=== PATIENT | female | born 1940 | race Caucasian/White ===

== ENCOUNTER 2023-01-10 14:25 | Emergency (ER) | payer MEDICARE, OTHER, SELFPAY ==
--- NOTE | ~2023-01-10 | XR_ITS ---
EXAMINATION: XR chest 1V, XR shoulder RT min 2V CLINICAL INFORMATION: Reason for Exam fall chest trauma COMPARISON: None. TECHNIQUE: 5 view series right shoulder; portable AP chest FINDINGS: Chest: Moderate aortic calcific atherosclerosis is noted. The cardiac silhouette is normal in size. No effusions or pneumothoraces. Mild biapical pleural parenchymal scarring of the lungs is visualized. A normal pattern of pulmonary vasculature is noted. No focal pulmonary consolidation. Right shoulder: Chronic appearing dystrophic calcifications are noted in the expected region of the distal supraspinatus. Glenoid humeral joint spacing and alignment are normal in appearance. Visualized right ribs and lung are normal in appearance. Mild osteophytosis of the acromioclavicular joint. XR/XR chest 1V IMPRESSION: CHEST: 1. No acute cardiopulmonary abnormalities. 2. Moderate aortic calcific atherosclerosis. RIGHT SHOULDER: 1. No acute abnormalities identified. 2. Chronic appearing dystrophic calcifications in the expected region of the distal supraspinatus tendon. Findings may correlate with chronic calcific tendinosis and chronic rotator cuff degeneration.
--- NOTE | ~2023-01-10 | US_ITS ---
EXAMINATION: US VENOUS ULTRASOUND WITH DOPPLER LOWER EXTREMITY, LEFT CLINICAL INFORMATION: Left lower extremity swelling. COMPARISON: None available. TECHNIQUE: Ultrasound of the deep veins is performed from the hip to the calf with compression sonography and color and pulse Doppler assessment. Spectral analysis with color-flow imaging is performed. FINDINGS: There is normal venous compression and respiratory variation and augmented flow. The visualized common femoral vein, superficial femoral vein, profunda femoral vein, popliteal vein, and the trifurcation region shows no evidence of deep venous thrombosis. There is no significant popliteal fossa cyst. No evidence of Lindsey's cyst. US/US venous duplex LE LT IMPRESSION: No DVT demonstrated in the left lower extremity.
--- NOTE | ~2023-01-10 | XR_ITS ---
EXAMINATION: XR chest 1V, XR shoulder RT min 2V CLINICAL INFORMATION: Reason for Exam fall chest trauma COMPARISON: None. TECHNIQUE: 5 view series right shoulder; portable AP chest FINDINGS: Chest: Moderate aortic calcific atherosclerosis is noted. The cardiac silhouette is normal in size. No effusions or pneumothoraces. Mild biapical pleural parenchymal scarring of the lungs is visualized. A normal pattern of pulmonary vasculature is noted. No focal pulmonary consolidation. Right shoulder: Chronic appearing dystrophic calcifications are noted in the expected region of the distal supraspinatus. Glenoid humeral joint spacing and alignment are normal in appearance. Visualized right ribs and lung are normal in appearance. Mild osteophytosis of the acromioclavicular joint. XR/XR shoulder RT min 2V IMPRESSION: CHEST: 1. No acute cardiopulmonary abnormalities. 2. Moderate aortic calcific atherosclerosis. RIGHT SHOULDER: 1. No acute abnormalities identified. 2. Chronic appearing dystrophic calcifications in the expected region of the distal supraspinatus tendon. Findings may correlate with chronic calcific tendinosis and chronic rotator cuff degeneration.
[2023-01-10 14:38] VITALS: BP 109/70; PULSE 105; RESP 18; TEMP 36.8; O2SAT 98; BMI 30.1
--- NOTE | 2023-01-10 14:39 | ECG_ITS ---
Test Reason : fall Blood Pressure : / mmHG Vent. Rate : 102 BPM Atrial Rate : 000 BPM P-R Int : 000 ms QRS Dur : 076 ms QT Int : 338 ms P-R-T Axes : 000 003 -21 degrees QTc Int : 440 ms Atrial fibrillation with rapid ventricular response Anteroseptal infarct , age undetermined Abnormal ECG No previous ECGs available Referred By: Gemma Powell Electronically Signed By:RIKKI BACH MD
--- NOTE | 2023-01-10 14:40 | ED_ITS ---
HPI - General Adult General Chief complaint: Fall <SIMON Ramirez Last Filed: 01/10/23 14:44> Stated complaint: swelling in L leg/coughing/pain R arm <SIMON Ramirez Last Filed: 01/10/23 14:44> Time Seen by Provider: 01/10/23 16:30 <SIMON Ramirez Last Filed: 01/10/23 14:44> Source: patient <SIMON Ng Last Filed: 01/10/23 17:27> Mode of arrival: ambulatory <SIMON Ng Last Filed: 01/10/23 17:27> Limitations: no limitations <SIMON Ng Last Filed: 01/10/23 17:27> History of Present Illness HPI narrative: Patient is an 82 year old assigned female at with a history of CKD and DM presenting to the emergency department today with increased swelling in the legs and increased falling. Patient states that her legs have been increasingly more swollen despite her taking her medications at home and she has been falling more frequently. Patient states she has had some intermittent SOB on exertion. Patient denies any dizziness, lightheadedness, abdominal pain, nausea, vomiting, fever, chills, blurry vision, double vision, loss of vision, chest pain, back pain, night sweats, pain with urination, increased urinary frequency, increased urinary urgency, blood in her urine or stool, syncope or a near syncopal episode, recent trauma or falls, bowel incontinence, bladder incontinence, bowel retention, bladder retention, or any other complaints at this time. <SIMON Ng Last Filed: 01/10/23 17:27> Onset (ago): day(s) (2) <SIMON Ng Last Filed: 01/10/23 17:27> Severity: mild <SIMON Ng Last Filed: 01/10/23 17:27> Relieving factors: none <SIMON Ng Last Filed: 01/10/23 17:27> Exacerbating factors: none <SIMON Ng Last Filed: 01/10/23 17:27> Associated symptoms: shortness of breath (intermittent) <SIMON Ng Last Filed: 01/10/23 17:27> Treatments prior to arrival: none <SIMON Ng - Last Filed: 01/10/23 17:27> Related Data Allergies/adverse reactions: Allergies Allergy/AdvReac Type Severity Reaction Status Date / Time No Known Allergies Allergy Verified 01/10/23 14:37 <Gemma Powell CT - Last Filed: 01/10/23 14:44> Review of Systems Constitutional: Constitutional: Reports no additional constitutional complaints, Denies chills, Denies fever(s) and Denies night sweats <SIMON Ng - Last Filed: 01/10/23 17:27> Eyes: Eyes: Reports no additional eye complaints, Denies blurry vision, Denies change in vision, Denies diplopia, Denies eye discharge, Denies loss of vision and Denies eye pain <SIMON Ng Last Filed: 01/10/23 17:27> ENT: Denies dizziness <SIMON Ng - Last Filed: 01/10/23 17:27> Cardiovascular: Cardiovascular: Reports no additional cardiovascular complaints, Denies chest pain, Denies lightheadedness, Denies Loss of Consciousness and Denies dyspnea <SIMON Ng Last Filed: 01/10/23 17:27> Respiratory: Respiratory: Reports no additional respiratory complaints and D enies dyspnea <SIMON Ng Last Filed: 01/10/23 17:27> Gastrointestinal: Gastrointestinal: Reports no additional gastrointestinal complaints, Denies abdominal pain, Denies melena, Denies hematochezia, Denies change in bowel habits and Denies change in stool character <SIMON Ng - Last Filed: 01/10/23 17:27> Genitourinary: Genitourinary: Denies hematuria, Denies urinary frequency, Denies dysuria, Denies urinary incontinence, Denies urinary hesitancy and Denies urinary urgency <SIMON Ng Last Filed: 01/10/23 17:27> Musculoskeletal: Musculoskeletal: Reports no additional musculoskeletal complaints, Denies numbness and Denies tingling <SIMON Ng Last Filed: 01/10/23 17:27> Neurologic: Denies dizziness, Denies loss of vision, Denies numbness and D enies tingling <SIMON Ng - Last Filed: 01/10/23 17:27> Psychiatric: Psychiatric: Reports no additional psychiatric complaints <SIMON Ng - Last Filed: 01/10/23 17:27> Endocrine: Endocrine: Reports no additional endocrine complaints <SIMON Ng - Last Filed: 01/10/23 17:27> Hematologic/Lymphatic: Hematologic/Lymphatic: Reports no additional hematologic/lymphatic complaints <SIMON Ng - Last Filed: 01/10/23 17:27> Allergic/Immunologic: Allergic/Immunologic: Reports no additional allergic/immunologic complaints <SIMON Ng - Last Filed: 01/10/23 17:27> PMFSH Past Medical History Attestation statement: The following information was validated with the patient. <SIMON Ng - Last Filed: 01/10/23 17:27> Source: old records reviewed, obtained from family (patient's daughter) and nursing notes reviewed <SIMON Ng - Last Filed: 01/10/23 17:27> Social History Social History: Social History Advance Directives: No Advance Directives Information Provided: No <SIMON Ramirez Last Filed: 01/10/23 14:44> Physical Exam ED Vital Signs: Vital Signs - 24 hr 01/10/23 14:38 Temperature 98.3 F Pulse Rate 105 H Respiratory Rate 18 Blood Pressure 109/70 Pulse Oximetry 98 Oxygen Delivery Method Room Air BMI result Body Mass Index 30.1 <SIMON Ramirez - Last Filed: 01/10/23 14:44> Vital Signs - 24 hr 01/10/23 14:38 Temperature 98.3 F Pulse Rate 105 H Respiratory Rate 18 Blood Pressure 109/70 Pulse Oximetry 98 Oxygen Delivery Method Room Air BMI result Body Mass Index 30.1 <SIMON Ng - Last Filed: 01/10/23 17:27> Const General: cooperative, no acute distress, alert and awake <SIMON Ng Last Filed: 01/10/23 17:27> Nutritional Appearance: well nourished <SIMON Ng - Last Filed: 01/10/23 17:27> Orientation/consciousness: patient oriented x3 <Kori Oscarjerrod CT - Last Filed: 01/10/23 17:27> Limitations: no limitations <Kori Oscarjerrod CT - Last Filed: 01/10/23 17:27> HENMT Head: Yes normal to inspection and Yes atraumatic <Kori Oscarjerrod CT - Last Filed: 01/10/23 17:27> Ears: hearing grossly normal bilaterally and external ears normal <Kori Oscarjerrod CT - Last Filed: 01/10/23 17:27> General nose exam: Normal external nose present, no nasal discharge noted and no epistaxis <Koridell Oscarjerrod CT - Last Filed: 01/10/23 17:27> Face and sinus: Yes normal facial exam, No abrasion and No laceration <Kori Oscarjerrod CT - Last Filed: 01/10/23 17:27> Mouth: Normal oral and palatal mucosa present, no drooling and no muffled voice <Koridell Oscarjerrod CT - Last Filed: 01/10/23 17:27> Eyes General: appearance normal, both eyes and all related structures <Kori Oscarjerrod PA - Last Filed: 01/10/23 17:27> Periorbital: periorbital findings normal <Kori Oscarjerrod CT - Last Filed: 01/10/23 17:27> Eyelids: Yes eyelids normal <Kori Oscarjerrod CT - Last Filed: 01/10/23 17:27> Conjunctivae: conjunctivae normal <Koridell Oscarjerrod CT - Last Filed: 01/10/23 17:27> Pupils: Equal, round and reactive pupils present <Kori Oscarejrrod PA - Last Filed: 01/10/23 17:27> EOM: EOMs intact bilaterally <Kori Nicolas PA - Last Filed: 01/10/23 17:27> Neck Neck: Yes normal visual inspection, Yes full ROM and Yes no lymphadenopathy <Kori Nicolas PA - Last Filed: 01/10/23 17:27> Chest Chest palpation & inspection: normal inspection of the chest <SIMON Ng - Last Filed: 01/10/23 17:27> Resp Effort & Inspection: normal respiratory effort and able to speak in complete sentences <Kori Valenzuela PA - Last Filed: 01/10/23 17:27> Auscultation: clear to auscultation bilaterally <Kori Valenzuela PA - Last Filed: 01/10/23 17:27> Cardio Rate: regular rate <Kori Valenzuela PA - Last Filed: 01/10/23 17:27> Rhythm: abnormal rhythm irregularly irregular <Kori Valenzuela PA - Last Filed: 01/10/23 17:27> GI Inspection: Yes normal to inspection <Kori Valenzuela PA - Last Filed: 01/10/23 17:27> Neuro General: patient oriented x3 and moves all extremities <Kori Valenzuela PA - Last Filed: 01/10/23 17:27> Cranial nerves: Yes Equal, round and reactive pupils present <Kori Valenzuela PA - Last Filed: 01/10/23 17:27> Cognition (Neuro): normal cognition <Kori Valenzuela PA - Last Filed: 01/10/23 17:27> Motor exam (neuro): 5/5 motor strength present throughout <Kori Valenzuela PA - Last Filed: 01/10/23 17:27> Sensory Exam: Normal double simultaneous stimulation for sensation <Kori Valenzuela PA - Last Filed: 01/10/23 17:27> Coordination: [id number] test normal <Kori Valenzuela PA - Last Filed: 01/10/23 17:27> Extrem General: Yes normal to inspection, Yes full ROM and Yes capillary refill normal <Kori Valenzuela PA - Last Filed: 01/10/23 17:27> Psych Appearance: grossly normal <Kori Valenzuela PA - Last Filed: 01/10/23 17:27> Mental Status: mental status grossly normal <Kori OscarSIMON elder - Last Filed: 01/10/23 17:27> Affect: normal affect <Kori OscarSIMON elder - Last Filed: 01/10/23 17:27> Attitude: cooperative <Kori Oscarjerrod PA - Last Filed: 01/10/23 17:27> Thought process: Normal thought process present <Kori Oscarjerrod PA - Last Filed: 01/10/23 17:27> Thought content: Normal thought content present <SIMON Ng - Last Filed: 01/10/23 17:27> Insight: Good insight present (Psych) <SIMON Ng - Last Filed: 01/10/23 17:27> Course Course Course Narrative: This is an RME: Additional HPI, ROS, PE not included below will be deferred to primary provider. 82-year-old female history of AFib on Eliquis presenting to the emergency department with left lower extremity swelling over the past week, recent fall ( few days ago) without head strike injuring right shoulder. Unclear why patient fell. Also reporting productive cough. Patient reports she is compliant with anticoagulation. Physical exam 2+ pitting edema to left lower extremity, normal right lower extremity. Plan- imaging, ekg, trop, labs, viral test <SIMON Ramirez - Last Filed: 01/10/23 14:44> Medical Decision Making Medical Decision Making MDM Narrative: Patient is an 82 year old assigned female at with a history of CKD, DM, and atrial-fib presenting to the emergency department today with increased leg swelling and a fall 2 days ago. Patient's physical exam showed minimal lower leg edema. Patient's blood work showed an elevated CR and BNP however, when comparing to her previous records at other hospitals - this is baseline for the patient. Patient's EKG was read as atrial fib with RVR however, the patient's rate has normalized. Patient's chest and shoulder x-ray showed no acute process. I explained my physical exam findings as well as all test results to the patient and the patient's daughter. I answered all questions asked by the patient and the patient's daughter. Patient stated that she has an appointment with her field observer this upcoming Thursday and she does not want to stay in the hospital. I stressed the importance of the patient taking her medication as prescribed. I stressed the importance of the patient following up with her primary care provider and a field observer. I stressed the importance of the patient returning to the emergency department immediately if her symptoms were to worsen or if she were to develop any dizziness, shortness of breath, difficulty breathing, chest pain, blurry vision, loss of vision, nausea, vomiting, abdominal pain, fever, chills, back pain, or any other complaints. Patient and the patient's daughter verbalized agreement and understanding with this treatment plan and discharge. <SIMON Ng - Last Filed: 01/10/23 17:27> Differential Diagnosis Differential Diagnoses: The differential diagnosis associated with the presentation includes <SIMON Ng - Last Filed: 01/10/23 17:27> CKD, fall, atrial fib <SIMON Ng - Last Filed: 01/10/23 17:27> Lab Data MDM Lab Attestation statement: I reviewed the patient's lab results. <SIMON Ng - Last Filed: 01/10/23 17:27> Result Diagrams: 01/10/23 15:25 01/10/23 15:25 <SIMON Ramirez - Last Filed: 01/10/23 14:44> Labs: Lab Results 01/10/23 01/10/23 01/10/23 Range/Units 15:25 15:25 15:25 WBC 7.8 (4.8-10.8) X10*3/uL RBC 3.48 L (4.20-5.50) X10*6/uL Hgb 11.1 L (12.0-16.0) g/dl Hct 35.1 L (37.0-47.0) % MCV 100.9 H (80.0-98.0) fL MCH 31.9 (27.0-33.0) pg MCHC 31.6 (31.0-35.0) g/dl RDW 16.9 H (11.0-16.0) % Plt Count 145 L (160-400) X10*3/uL MPV 11.1 (9.4-12.3) fL Immature Gran % (Auto) 0.6 H (0.0-0.4) % Neut % (Auto) 77.6 H (45-73) % Lymph % (Auto) 13.4 L (20-40) % [place] % (Auto) 8.2 (2-11) % Eos % (Auto) 0.1 (0-4) % Baso % (Auto) 0.1 (0-2) % Lymph # (Auto) 1.1 L (1.2-4.9) X10*3/uL [place] # (Auto) 0.6 (0.1-1.2) X10*3/uL Eos # (Auto) 0.0 (0.0-0.4) X10*3/uL Baso # (Auto) 0.0 (0.0-0.2) X10*3/uL Abs Immat Gran (auto) 0.05 H (0.00-0.03) X10*3/uL Absolute Neuts (auto) 6.1 (2.0-8.3) x10*3/uL Absolute Nucleated RBC 0.000 (0.0-0.012) X10*3/uL Nucleated RBC % (auto) 0.0 (0.0-0.2) /100WBC Sodium 145 (135-145) mmol/L Potassium 4.1 (3.3-5.1) mmol/L Chloride 107 (96-108) mmol/L Carbon Dioxide 30 H (22-29) mmol/L Anion Gap 12 (12-20) BUN 37 H (9-16) mg/dL Creatinine 2.33 H (0.5-1.4) mg/dL Estim Creat Clear Calc 17.6 Estimated GFR 20 Random Glucose 146 H (60-115) mg/dL Calcium 8.2 L (8.4-10.2) mg/dL Magnesium 2.3 (1.6-2.6) mg/dL Total Bilirubin 0.5 (0.0-1.0) mg/dL AST 44 H (5-31) U/L ALT 122 H (0-31) U/L Alkaline Phosphatase 147 H (39-117) U/L Troponin I High Sens 16.3 (<3.5-17.0) ng/L B-Natriuretic Peptide (<100) pg/mL Total Protein 5.6 L (6.5-8.0) g/dL Albumin 3.3 L (3.5-5.0) g/dL COVID-19 ([facility]) (Negative) COVID-19 Clin Com 01/10/23 01/10/23 Range/Units 15:25 15:25 WBC (4.8-10.8) X10*3/uL RBC (4.20-5.50) X10*6/uL Hgb (12.0-16.0) g/dl Hct (37.0-47.0) % MCV (80.0-98.0) fL MCH (27.0-33.0) pg MCHC (31.0-35.0) g/dl RDW (11.0-16.0) % Plt Count (160-400) X10*3/uL MPV (9.4-12.3) fL Immature Gran % (Auto) (0.0-0.4) % Neut % (Auto) (45-73) % Lymph % (Auto) (20-40) % [place] % (Auto) (2-11) % Eos % (Auto) (0-4) % Baso % (Auto) (0-2) % Lymph # (Auto) (1.2-4.9) X10*3/uL [place] # (Auto) (0.1-1.2) X10*3/uL Eos # (Auto) (0.0-0.4) X10*3/uL Baso # (Auto) (0.0-0.2) X10*3/uL Abs Immat Gran (auto) (0.00-0.03) X10*3/uL Absolute Neuts (auto) (2.0-8.3) x10*3/uL Absolute Nucleated RBC (0.0-0.012) X10*3/uL Nucleated RBC % (auto) (0.0-0.2) /100WBC Sodium (135-145) mmol/L Potassium (3.3-5.1) mmol/L Chloride (96-108) mmol/L Carbon Dioxide (22-29) mmol/L Anion Gap (12-20) BUN (9-16) mg/dL Creatinine (0.5-1.4) mg/dL Estim Creat Clear Calc Estimated GFR Random Glucose (60-115) mg/dL Calcium (8.4-10.2) mg/dL Magnesium (1.6-2.6) mg/dL Total Bilirubin (0.0-1.0) mg/dL AST (5-31) U/L ALT (0-31) U/L Alkaline Phosphatase (39-117) U/L Troponin I High Sens (<3.5-17.0) ng/L B-Natriuretic Peptide 426 H (<100) pg/mL Total Protein (6.5-8.0) g/dL Albumin (3.5-5.0) g/dL COVID-19 ([facility]) Negative (Negative) COVID-19 Clin Com See Note <SIMON Ramirez - Last Filed: 01/10/23 14:44> Lab Results 01/10/23 01/10/23 01/10/23 Range/Units 15:25 15:25 15:25 WBC 7.8 (4.8-10.8) X10*3/uL RBC 3.48 L (4.20-5.50) X10*6/uL Hgb 11.1 L (12.0-16.0) g/dl Hct 35.1 L (37.0-47.0) % MCV 100.9 H (80.0-98.0) fL MCH 31.9 (27.0-33.0) pg MCHC 31.6 (31.0-35.0) g/dl RDW 16.9 H (11.0-16.0) % Plt Count 145 L (160-400) X10*3/uL MPV 11.1 (9.4-12.3) fL Immature Gran % (Auto) 0.6 H (0.0-0.4) % Neut % (Auto) 77.6 H (45-73) % Lymph % (Auto) 13.4 L (20-40) % [place] % (Auto) 8.2 (2-11) % Eos % (Auto) 0.1 (0-4) % Baso % (Auto) 0.1 (0-2) % Lymph # (Auto) 1.1 L (1.2-4.9) X10*3/uL [place] # (Auto) 0.6 (0.1-1.2) X10*3/uL Eos # (Auto) 0.0 (0.0-0.4) X10*3/uL Baso # (Auto) 0.0 (0.0-0.2) X10*3/uL Abs Immat Gran (auto) 0.05 H (0.00-0.03) X10*3/uL Absolute Neuts (auto) 6.1 (2.0-8.3) x10*3/uL Absolute Nucleated RBC 0.000 (0.0-0.012) X10*3/uL Nucleated RBC % (auto) 0.0 (0.0-0.2) /100WBC Sodium 145 (135-145) mmol/L Potassium 4.1 (3.3-5.1) mmol/L Chloride 107 (96-108) mmol/L Carbon Dioxide 30 H (22-29) mmol/L Anion Gap 12 (12-20) BUN 37 H (9-16) mg/dL Creatinine 2.33 H (0.5-1.4) mg/dL Estim Creat Clear Calc 17.6 Estimated GFR 20 Random Glucose 146 H (60-115) mg/dL Calcium 8.2 L (8.4-10.2) mg/dL Magnesium 2.3 (1.6-2.6) mg/dL Total Bilirubin 0.5 (0.0-1.0) mg/dL AST 44 H (5-31) U/L ALT 122 H (0-31) U/L Alkaline Phosphatase 147 H (39-117) U/L Troponin I High Sens 16.3 (<3.5-17.0) ng/L B-Natriuretic Peptide (<100) pg/mL Total Protein 5.6 L (6.5-8.0) g/dL Albumin 3.3 L (3.5-5.0) g/dL COVID-19 ([facility]) (Negative) COVID-19 Clin Com 01/10/23 01/10/23 Range/Units 15:25 15:25 WBC (4.8-10.8) X10*3/uL RBC (4.20-5.50) X10*6/uL Hgb (12.0-16.0) g/dl Hct (37.0-47.0) % MCV (80.0-98.0) fL MCH (27.0-33.0) pg MCHC (31.0-35.0) g/dl RDW (11.0-16.0) % Plt Count (160-400) X10*3/uL MPV (9.4-12.3) fL Immature Gran % (Auto) (0.0-0.4) % Neut % (Auto) (45-73) % Lymph % (Auto) (20-40) % [place] % (Auto) (2-11) % Eos % (Auto) (0-4) % Baso % (Auto) (0-2) % Lymph # (Auto) (1.2-4.9) X10*3/uL [place] # (Auto) (0.1-1.2) X10*3/uL Eos # (Auto) (0.0-0.4) X10*3/uL Baso # (Auto) (0.0-0.2) X10*3/uL Abs Immat Gran (auto) (0.00-0.03) X10*3/uL Absolute Neuts (auto) (2.0-8.3) x10*3/uL Absolute Nucleated RBC (0.0-0.012) X10*3/uL Nucleated RBC % (auto) (0.0-0.2) /100WBC Sodium (135-145) mmol/L Potassium (3.3-5.1) mmol/L Chloride (96-108) mmol/L Carbon Dioxide (22-29) mmol/L Anion Gap (12-20) BUN (9-16) mg/dL Creatinine (0.5-1.4) mg/dL Estim Creat Clear Calc Estimated GFR Random Glucose (60-115) mg/dL Calcium (8.4-10.2) mg/dL Magnesium (1.6-2.6) mg/dL Total Bilirubin (0.0-1.0) mg/dL AST (5-31) U/L ALT (0-31) U/L Alkaline Phosphatase (39-117) U/L Troponin I High Sens (<3.5-17.0) ng/L B-Natriuretic Peptide 426 H (<100) pg/mL Total Protein (6.5-8.0) g/dL Albumin (3.5-5.0) g/dL COVID-19 ([facility]) Negative (Negative) COVID-19 Clin Com See Note <SIMON Ng - Last Filed: 01/10/23 17:27> Independent Interpretation I performed an independent interpretation of an: EKG <SIMON Ng - Last Filed: 01/10/23 17:27> Interpretation: Vent. Rate: 102 BPM ? ? Atrial Rate: 000 BPM P-R Int: 000 ms? QRS Dur: 076 ms QT Int: 338 ms ? ? ? P-R-T Axes: 000 003 -21 degrees QTc Int: 440 ms ? Atrial fibrillation with rapid ventricular response Anteroseptal infarct , age undetermined Abnormal ECG No previous ECGs available DD/ 1514 <SIMON Ng - Last Filed: 01/10/23 17:27> Radiology Impression Radiologist Impression: My interpretation is in agreement with the radiologist's impression of these imaging studies. EXAMINATION: XR chest 1V, XR shoulder RT min 2V CLINICAL INFORMATION: Reason for Exam fall chest trauma COMPARISON: None. TECHNIQUE: 5 view series right shoulder; portable AP chest FINDINGS: Chest: Moderate aortic calcific atherosclerosis is noted. The cardiac silhouette is normal in size. No effusions or pneumothoraces. Mild biapical pleural parenchymal scarring of the lungs is visualized. A normal pattern of pulmonary vasculature is noted. No focal pulmonary consolidation. Right shoulder: Chronic appearing dystrophic calcifications are noted in the expected region of the distal supraspinatus. Glenoid humeral joint spacing and alignment are normal in appearance. Visualized right ribs and lung are normal in appearance. Mild osteophytosis of the acromioclavicular joint. XR/XR shoulder RT min 2V IMPRESSION: CHEST: 1.? No acute cardiopulmonary abnormalities. 2.? Moderate aortic calcific atherosclerosis. ? RIGHT SHOULDER: 1.? No acute abnormalities identified. 2.? Chronic appearing dystrophic calcifications in the expected region of the distal supraspinatus tendon. Findings may correlate with chronic calcific tendinosis and chronic rotator cuff degeneration. Dictated By: Gonzalez Kaye MD Signed By: Electronically signed by Gonzalez Kaye MD 01/10/23 1633 <SIMON Ng - Last Filed: 01/10/23 17:27> Independent Historian Clinical information obtained from an independent historian. History obtained from or confirmed by: Other (patient's daughter) <SIMON Ng - Last Filed: 01/10/23 17:27> Discharge Plan Discharge Clinical Impression: CKD (chronic kidney disease), Fall <SIMON Ramirez - Last Filed: 01/10/23 14:44> Patient Disposition: Home, Self-Care <SIMON Ramirez - Last Filed: 01/10/23 14:44> Instructions: Chronic Kidney Disease (ED), Fall Prevention (ED) <SIMON Ramirez - Last Filed: 01/10/23 14:44> Additional Instructions: Follow up with your primary care provider and your field observer on Thursday, as scheduled. Return to the emergency department immediately if your symptoms worsen or if you develop any dizziness, shortness of breath, difficulty breathing, chest pain, blurry vision, loss of vision, nausea, vomiting, abdominal pain, fever, chills, back pain, or any other complaints. <SIMON Ramirez - Last Filed: 01/10/23 14:44> Referrals: Rickey La MD [Primary Care Provider] - <SIMON Ramirez - Last Filed: 01/10/23 14:44> Print Language: Tongan <SIMON Ramirez - Last Filed: 01/10/23 14:44>
[2023-01-10 15:33] LABS: MANUAL DIFF FLAG NO
[2023-01-10 15:35] LABS: Basophils Percent Auto 0.1 % (0-2); Eosinophils Percent Auto 0.1 % (0-4); Hematocrit 35.1 % (37.0-47.0); Hemoglobin 11.1 g/dl (12.0-16.0); Imm Gran Abs Auto 0.05 X10*3/uL (0.00-0.03); Imm Gran Pct Auto 0.6 % (0.0-0.4); Lymphocytes Absolute Auto 1.1 X10*3/uL (1.2-4.9); Lymphocytes Percent Auto 13.4 % (20-40); Mean Corpuscular HGB Conc 31.6 g/dl (31.0-35.0); Mean Corpuscular Hemoglobin 31.9 pg (27.0-33.0); Mean Corpuscular Volume 100.9 fL (80.0-98.0); Mean Platelet Volume 11.1 fL (9.4-12.3); Monocytes Absolute Auto 0.6 X10*3/uL (0.1-1.2); Monocytes Percent Auto 8.2 % (2-11); Neutrophils Absolute Auto 6.1 x10*3/uL (2.0-8.3); Neutrophils Percent Auto 77.6 % (45-73); Platelet Count 145 X10*3/uL (160-400); Red Blood Count 3.48 X10*6/uL (4.20-5.50); Red Cell Distribution Width 16.9 % (11.0-16.0); White Blood Count 7.8 X10*3/uL (4.8-10.8)
[2023-01-10 15:49] LABS: Alanine Aminotransferase 122 U/L (0-31); Albumin Level 3.3 g/dL (3.5-5.0); Alkaline Phosphatase 147 U/L (39-117); Anion Gap 12 (12-20); Aspartate Amino Transferase 44 U/L (5-31); Bilirubin Total 0.5 mg/dL (0.0-1.0); Blood Urea Nitrogen 37 mg/dL (9-16); Calcium 8.2 mg/dL (8.4-10.2); Carbon Dioxide 30 mmol/L (22-29); Chloride 107 mmol/L (96-108); Creatinine Clr Calc Pharmacy 17.6; Estimated Glomerular Filt Rate 20; Glucose Random 146 mg/dL (60-115); Magnesium 2.3 mg/dL (1.6-2.6); Potassium 4.1 mmol/L (3.3-5.1); Sodium 145 mmol/L (135-145); Total Protein 5.6 g/dL (6.5-8.0)
[2023-01-10 15:54] LABS: B Type Natriuretic Peptide 426 pg/mL (<100)
[2023-01-10 15:55] LABS: COVID-19 Test Negative (Negative); IDNOW Serial# BCCEAD1C; Troponin-I High Sensitivity 16.3 ng/L (<3.5-17.0)
== END 2023-01-10 17:46 | disposition home or self-care (01) ==
PROVIDERS: Physician Assistant; Emergency Provider Emergency Medicine; PCP Internal Medicine
DX: E11.22 Type 2 diabetes mellitus with diabetic chronic kidney disease (principal); N18.9 Chronic kidney disease, unspecified; R60.0 Localized edema; R29.6 Repeated falls; R06.02 Shortness of breath; Z20.822 Contact with and (suspected) exposure to COVID-19; I48.91 Unspecified atrial fibrillation; Z79.01 Long term (current) use of anticoagulants
CPT/HCPCS: 71045; 73030; 80053; 83735; 83880; 84484; 85025; 87635; 93005; 93971; 99283; 99284